=== PATIENT | male | born 1975 | race Caucasian/White ===

== ENCOUNTER → 2019-09-04 11:02 | Outpatient (CLI) | payer OTHER, SELFPAY ==
--- NOTE | 2019-09-04 11:11 | XR_ITS ---
PROCEDURE: XR SHOULDER RT MIN 2V CLINICAL INDICATION: RT SHOULDER INJURY,H/O CLAVICLE FX COMPARISON: No exams were available for comparison FINDINGS: Prior ORIF right clavicle with superior and distal bone plate present with good alignment. The AC joint and glenohumeral joint have an unremarkable appearance. No fracture or dislocation. The joint spaces are well-preserved. No significant degenerative/arthritic changes. No erosive changes evident. Other findings:None. IMPRESSION: Prior ORIF right clavicle otherwise negative right shoulder Dictated by: Jacoby Newman MD 09/04/2019 15:53 Electronically signed by Jacoby Newman MD in [place] 09/04/2019 15:53
== END ==
PROVIDERS: PCP Family Medicine; Visit Provider Nurse Practitioner Family
DX: S49.91XA Unspecified injury of right shoulder and upper arm, initial encounter (principal); Z87.81 Personal history of (healed) traumatic fracture
CPT/HCPCS: 73030

== ENCOUNTER → 2021-02-19 11:50 | Outpatient (CLI) | payer OTHER, SELFPAY | PROVIDERS: PCP Family Medicine; Visit Provider Nurse Practitioner | DX: U07.1 COVID-19 (principal) | CPT/HCPCS: C9803; U0003; U0005 ==

== ENCOUNTER 2023-04-29 14:48 | Emergency (ER) | payer OTHER, SELFPAY ==
[2023-04-29 15:05] VITALS: BP 171/108; PULSE 74; RESP 18; TEMP 36.6; O2SAT 97; BMI 31.6
--- NOTE | 2023-04-29 15:37 | ED_ITS ---
Discharge Plan Disposition Patient Disposition: Home, Self-Care Condition: Good Prescriptions Prescriptions: New prednisone 20 mg tablet 20 mg PO BID 5 Days Qty: 10 0RF indomethacin 50 mg capsule 50 mg PO TID PRN (Reason: gout) Qty: 12 0RF Rx Instructions: administer with food or milk No Action paroxetine HCl 20 mg tablet 20 mg PO DAILY Referrals Follow up/Referrals: Trip Sanchez MD [Primary Care Provider] - See instructions Activity Restrictions/Add. Instructions Additional Instructions/Restrictions: Start oral steriods tomorrow Follow up with your Family Doctor if no improvement or any worsening of symptoms Return if needed Straight to ER if any life threatening symptoms Clinical Impressions Clinical Impression: Pseudogout Instructions Patient Instructions: DI for Pseudogout, Indomethacin Discharge ED Provider: Shweta Rushing [facility] General Stated complaint: right foot pain Mode of Arrival: Ambulatory Source of Information: Patient Limitations: No Limitations Time Seen by Provider: 04/29/23 15:37 Description of Symptoms (Recalled from Triage Doc. by RN): PATIENT C/O RIGHT GREAT TOE PAIN SINCE SUNDAY MORNING. PATIENT DENIES ANY KNOWN INJURY HEENT Symptoms (Recalled from RN notes): No Resp Symptoms (Recalled from RN notes): No Skin Symptoms (Recalled from RN notes): No MS Symptoms (Recalled from RN notes): Yes Functional Status (Recalled from RN notes): WNL History of Present Illness Provider Complaint: Patient states that he has been having pain/stiffness in his right great toe since Sun States that he has not had any injury to the toe that he is aware States thought he may have gout so he took some of his fathers indomethacin today and came in to get it checked Related Data Home Medications Medication Instructions Recorded Confirmed paroxetine HCl 20 mg tablet 20 mg PO DAILY 02/06/19 04/29/23 Previous Rx's Medication Instructions Recorded indomethacin 50 mg capsule 50 mg PO TID PRN gout #12 caps 04/29/23 prednisone 20 mg tablet 20 mg PO BID 5 days #10 tabs 04/29/23 Allergies Allergy/AdvReac Type Severity Reaction Status Date / Time No Known Allergies Allergy Verified 02/06/19 17:43 Worker's Comp Is this a Worker's Comp case?: No [facility] Disclaimer: The information contained in this section may have been updated after the patient was seen, as this information can be updated by other users. Medical History (Updated 04/29/23 @ 15:48 by Shweta Rushing APRN) Clavicle fracture Right tibial fracture OCD (obsessive compulsive disorder) Surgical History (Updated 04/29/23 @ 15:22 by Holli Harrison RN) H/O vasectomy Social History Smoking Status: Never smoker alcohol intake: current current occupational status: employed Travel in the last 8 weeks: Inside the [place] ROS Obtained: Yes All systems reviewed & no additional complaints except as documented and Yes Systems reviewed as appropriate & no additional complaints except as documented Constitutional Constitutional: Reports system reviewed and no additional complaints, except as documented and Reports as per HPI ENT Ears, Nose, Mouth, and Throat: Reports system reviewed and no additional complaints, except as documented and Reports as per HPI Cardiovascular Cardiovascular: Reports system reviewed and no additional complaints, except as documented and Reports as per HPI Respiratory Respiratory: Reports system reviewed and no additional complaints, except as documented and Reports as per HPI Gastrointestinal Gastrointestingal: Reports system reviewed and no additional complaints, except as documented and as per HPI Musculoskeletal Musculoskeletal: Reports system reviewed and no additional complaints, except as documented and Reports as per HPI Comments: pain and stiffness in right great toe Physical Exam General General appearance: alert and in no apparent distress ENT ENT exam: Present mucous membranes moist Respiratory Respiratory exam: Present normal lung sounds bilaterally; Absent respiratory distress or wheezes Cardiovascular Cardiovascular exam: Present regular rate, normal rhythm and normal heart sounds Abdominal Exam Abdominal exam: Present soft and normal bowel sounds; Absent distention or tenderness Expanded Lower Extremity Exam Right: Top foot image: 2 1. reports stiff feeling and soreness to the touch mild swelling noted no warmth no streaks Neurological Exam Neurological exam: Present alert, oriented X3 and normal gait Medical Decision Making Ga Inquiry Pt receiving controlled substance: No Ga was queried for this patient: No Vital Signs: 04/29/23 15:05 Temperature 97.9 F Temperature Source Oral Pulse Rate [Right Brachial] 74 Respiratory Rate 18 Blood Pressure [Right Arm] 171/108 H Blood Pressure Mean [Right Arm] 129 Blood Pressure Source [Right Arm] Automatic Cuff Blood Pressure Position [Right Arm] Sitting 02 Sat by Pulse Oximetry 97 Oxygen Delivery Method Room Air Lab Data Lab results reviewed: Yes I reviewed the patient's lab results. Lab Results 04/29/23 15:10: Uric Acid 8.0 Orders (Tests/Meds): ORDERS Category Date Time Status Foot XR right minimum 3 views [XR foot RT min 3V] Stat Exams 04/29/23 15:17 Ordered Uric Acid Stat Lab 04/29/23 15:10 Completed
[2023-04-29] MEDS: METHYLPREDNISOLONE SOD SUCC 125MG VIAL 125 MG IM (15:50)
[2023-04-29 15:52] VITALS: BP 171/108; PULSE 74; RESP 18; TEMP 36.6; O2SAT 97
== END 2023-04-29 16:02 | disposition home or self-care (01) ==
PROVIDERS: Emergency Provider Nurse Practitioner; PCP Family Medicine
DX: M11.271 Other chondrocalcinosis, right ankle and foot (principal); M79.674 Pain in right toe(s)
CPT/HCPCS: 84550; 96372; 99204; 99212; G0463